=== PATIENT | female | born 1935 | race Asian ===

== ENCOUNTER 2017-02-04 20:11 | Emergency (ER) | payer OTHER ==
[~2017-02-04] VITALS: Ht 154.9 cm; Wt 56.7 kg
[~2017-02-04 20:11] MED LIST: ALBUTEROL SULF8.5 GM INH; AMLODIPINE BES2.5 MG ORAL; ASPIRIN81 MG ORAL; CELEBREX200 MG ORAL; DONEPEZIL HCL10 M2 ORAL; LAMICTAL25 MG ORAL; LEVAQUIN500 MG ORAL; PRISTIQ ER50 MG PO; PROMETHAZINE-C118 M1 ORAL; TIMOPTIC 0.25%1 DROP BOTH EYES
[2017-02-04] MEDS ORDERED: ATORVASTATIN CA40 MG ORAL (20:28)
[2017-02-04] MEDS ORDERED: ASPIR 8181 MG ORAL (20:28)
[2017-02-04] MEDS ORDERED: VENLAFAXINE HCL75 M2 ORAL (20:28)
--- NOTE | 2017-02-04 21:19 | Emergency Room Report ---
History of Present Illness General Chief Complaint: Pain Source: Patient, Family Member Present Illness HPI 81 YOF with sharp pains to left side of head for 2 days, now resolving. History of "brain surgery" 15 years ago. Had MRI 2 months ago, but patient/ family member do not know result. Has had "surgery" to remove some of the tumor but some of it "cant be reached" and is still there. Denies fever/chills , neck pain/stiffness, other complaints. Denies focal upper/lower extremity deficits. 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 Hx Dementia: Yes Review of Systems All Other Systems: negative except mentioned in HPI Physical Exam Vital Signs Date Time Temp Pulse Resp B/P Pulse Ox O2 Delivery O2 Flow Rate FiO2 02/04/17 20:19 98.2 60 16 125/73 97 Room Air Sp02 EP Interpretation: reviewed, normal General Appearance: normal inspection, well appearing, no apparent distress, alert, GCS 15, non-toxic, other - Smiling, well appearing elderly lady sitting upright [facility] Head: normocephalic, atraumatic Eyes: bilateral eye EOMI, bilateral eye PERRL ENT: normal ENT inspection, hearing grossly normal, normal voice Neck: normal inspection, full range of motion, supple, no bony tend Respiratory: normal inspection, lungs clear, normal breath sounds, no respiratory distress, no retraction, no wheezing Cardiovascular #1: regular rate, rhythm, no edema Gastrointestinal: normal inspection, normal bowel sounds, non tender, soft, no guarding, no hernia Genitourinary: no CVA tenderness Musculoskeletal: normal inspection, back normal, normal range of motion, Philipp' s Sign negative Neurologic: normal inspection, alert, oriented x3, responsive, enterprise security architect III-XII nml as tested, motor strength/tone normal, speech normal Psychiatric: normal inspection, judgement/insight normal, mood/affect normal Skin: normal inspection, normal color, no rash Medical Decision Making ER Course CT head shows 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 patient remains asymptomatic in the ED Has Neuro followup appointment in 2 days Wants medication for severe pain at home DC with percocet Last Vital Signs Date Time Temp Pulse Resp B/P Pulse Ox O2 Delivery O2 Flow Rate FiO2 02/04/17 20:19 98.2 60 16 125/73 97 Room Air Status: improved Disposition: HOME, SELF-CARE Scripts Oxycodone/Acetaminophen 5-325* (PERCOCET 5-325 MG TABLET*) 1 Each Tablet 1 TAB ORAL BID Y for Severe Breakthru Pain (>7) for 3 Days, #12 TAB 0 Refills Prov: CHRISTIANA ALDRIDGE M.D. 02/04/17 Referrals: NON PHYSICIAN (PCP) CHRISTIANA ALDRIDGE M.D. Feb 04, 2017 21:19
[2017-02-04] MEDS ORDERED: PERCOCET 5-3251 EACH ORAL (21:47)
[2017-02-04 21:52] VITALS: BP 145/75
--- NOTE | 2017-02-05 09:52 | Diagnostic Imaging Report ---
Indication: Head pain Technique: Continuous helical CT scanning of the head was performed utilizing automated exposure control without intravenous contrast material. Axial and coronal reconstructions were obtained. Comparison: 03/03/15 CT dose: Total DLP 1344 mGycm; CTDI vol 70.4 mGy Findings: There is no acute intracranial hemorrhage or focal cortical edema. The ventricles, sulci and cisterns are stable. Periventricular hypoattenuation is again noted. A small area of right frontal encephalomalacia is suggestive of an old infarct. There is a grossly stable left cerebellopontine angle mass measuring approximately 3.3 x 1.5 cm suggestive of meningioma. Postsurgical changes of left mastoidectomy are again noted. Impression: No evidence of acute intracranial hemorrhage or cortical edema. MRI may be obtained for more sensitive evaluation as indicated. Stable chronic intracranial findings as above. The CT scanner at [facility] is accredited by the [employer] and the scans are performed using protocols designed to limit radiation exposure to as low as reasonably achievable to attain images of sufficient resolution adequate for diagnostic evaluation.
== END 2017-02-04 21:57 | disposition home or self-care (01) ==
LOC: EMR 21:03
DX: D32.0 Benign neoplasm of cerebral meninges (principal); I10 Essential (primary) hypertension; Z86.73 Personal history of transient ischemic attack (TIA), and cerebral infarction without residual deficits; F03.90 Unspecified dementia, unspecified severity, without behavioral disturbance, psychotic disturbance, mood disturbance, and anxiety; R51 Headache; Z98.890 Other specified postprocedural states
CPT/HCPCS: 70450; 99284